=== PATIENT | male | born 1965 | race Caucasian/White ===

== ENCOUNTER 2023-03-28 06:44 | Emergency (ER) | payer OTHER, BC | END 2023-03-28 08:32 | disposition home or self-care (01) | LOC: CSHERS 06:44 | DX: S16.1XXA Strain of muscle, fascia and tendon at neck level, initial encounter (principal); S70.02XA Contusion of left hip, initial encounter; S40.012A Contusion of left shoulder, initial encounter; I10 Essential (primary) hypertension; V89.2XXA Person injured in unspecified motor-vehicle accident, traffic, initial encounter | CPT/HCPCS: 71045; 72125 ==